=== PATIENT | male | born 1975 | race Caucasian/White ===

== ENCOUNTER 2024-06-05 20:45 | Emergency (ER) | payer SELFPAY ==
[~2024-06-05] VITALS: Ht 177.8 cm; Wt 110.0 kg
[2024-06-05 20:51] VITALS: O2SAT 97
[2024-06-05] MEDS: LORAZEPAM 2MG/ML INJ IM STA (21:26)
[2024-06-05] MEDS: HALOPERIDOL LACTATE 5MG/ML VIAL IM ONE (21:26)
[2024-06-05] MEDS: DIPHENHYDRAMINE 50MG/ML VIAL IM STA (21:26)
[2024-06-05 21:55] LABS: CHLORIDE 110 mEq/L (98-107); POTASSIUM 3.6 mEq/L (3.5-5.1); SODIUM 143 mEq/L (136-145)
[2024-06-05 21:56] LABS: CALCIUM 9.5 mg/dL (8.7-10.4); CARBON DIOXIDE 20 mEq/L (21-32)
[2024-06-05 22:01] LABS: CREATININE 1.6 mg/dL (0.6-1.3); GLUCOSE 122 mg/dL (70-105); UREA NITROGEN BLOOD 16 mg/dL (9-23)
[2024-06-05 22:04] LABS: HEMATOCRIT. 48.4 % (42.0-52.0); HEMOGLOBIN. 15.8 g/dL (14.0-18.0); MEAN CORPUSCULAR HEMOGLOBIN 27.8 pg (28.0-32.0); MEAN CORPUSCULAR HGB CONC 32.6 g/dL (31.0-37.0); MEAN CORPUSCULAR VOLUME 85.2 fL (80.0-94.0); MEAN PLATELET VOLUME 7.4 fl (7.4-10.4); PLATELET 221 x1000/uL (130-400); RED BLOOD CELL COUNT 5.68 mill/uL (4.7-6.1); RED CELL DISTRIBUTION WIDTH 14.2 % (11.6-14.6); WHITE BLOOD COUNT 20.8 x1000/uL (4.5-11.0)
[2024-06-05 22:10] LABS: DIFFERENTIAL COMMENT 1
[2024-06-05 22:16] LABS: ETHANOL BLOOD < 10 mg/dL (<10)
[2024-06-05 22:37] LABS: PLATELET ESTIMATE NORMAL
[2024-06-06 01:17] LABS: CLARITY URINE CLEAR (CLEAR); COLOR URINE YELLOW (YELLOW); GLUCOSE URINE NEGATIVE (NEGATIVE); KETONES URINE 1+ (NEGATIVE); LEUKOCYTE ESTERASE URINE NEGATIVE (NEGATIVE); NITRITE URINE NEGATIVE (NEGATIVE); OCCULT BLOOD URINE TRACE (NEGATIVE); PH URINE 7.5 (4.5-8.0); PROTEIN URINE 2+ (NEGATIVE); SPECIFIC GRAVITY URINE 1.022 (1.005-1.030); UROBILINOGEN URINE 0.2 E.U./dL (0.2-1.0)
[2024-06-06 01:47] LABS: *AMPHETAMINES SCREEN URINE PRESUMPTIVE POSITIVE (NEGATIVE); *BARBITURATES SCREEN URINE NEGATIVE (NEGATIVE); *BENZODIAZEPINES SCREEN URINE PRESUMPTIVE POSITIVE (NEGATIVE); *COCAINE SCREEN URINE NEGATIVE (NEGATIVE); CANNABINOID URINE SCREEN NEGATIVE (NEGATIVE); METHADONE URINE SCREEN NEGATIVE (NEGATIVE); OPIATES URINE SCREEN NEGATIVE (NEGATIVE); PHENCYCLIDINE URINE SCREEN NEGATIVE (NEGATIVE)
[2024-06-06 01:48] LABS: ECSTASY MDMA SCREEN URINE CONF.TEST INDICATED (NEGATIVE)
[2024-06-06] MEDS: LORAZEPAM 2MG/ML INJ IM NR (02:22)
[2024-06-06] MEDS: HALOPERIDOL LACTATE 5MG/ML VIAL IM NR (02:47)
[2024-06-06] MEDS: LORAZEPAM 2MG/ML INJ ONE (02:48)
[2024-06-06] MEDS: HALOPERIDOL LACTATE 5MG/ML VIAL IM ONE (02:48)
[2024-06-06] MEDS: DIPHENHYDRAMINE 50MG/ML VIAL IM NR (02:48)
[2024-06-06] MEDS: DIPHENHYDRAMINE 50MG/ML VIAL IM ONE (02:49)
[2024-06-06] MEDS: LORAZEPAM 2MG/ML INJ IM ONE (02:49)
[2024-06-06 04:53] LABS: RBC URINE 0-2 /hpf (0-2); WBC URINE 0-2 /hpf (0-2)
[2024-06-06 04:54] LABS: SQUAMOUS EPITHELIAL CELL URINE NONE SEEN /lpf (RARE/1+)
[2024-06-06 04:56] LABS: BACTERIA URINE NONE SEEN
[2024-06-06 09:00] VITALS: BP 143/87; PULSE 76; RESP 18; TEMP 37.00296; O2SAT 97
== END 2024-06-06 09:27 | disposition home or self-care (01) ==
LOC: ER 20:45
DX: R41.82 Altered mental status, unspecified (principal); R45.1 Restlessness and agitation; F15.129 Other stimulant abuse with intoxication, unspecified
CPT/HCPCS: 80048; 80320; 85025; 36415; 93005; 96372 ×2; 99291; 80305; 81003; J1200 ×2; J1630 ×2; J2060 ×2; A4663; A4606; G0480